=== PATIENT | male | born 1955 | race Caucasian/White ===

== ENCOUNTER → 2016-06-29 | Outpatient (CLI) | payer BC | LOC: BMCIMAGING 08:01 | PROVIDERS: ATTEND Allergy & Immunology Allergy | DX: R50.9 Fever, unspecified (principal); J98.11 Atelectasis ==

== ENCOUNTER → 2016-07-11 | Outpatient (CLI) | payer BC | LOC: CIMAGING 09:24 | PROVIDERS: ATTEND Internal Medicine | DX: J98.11 Atelectasis (principal) | CPT/HCPCS: 71250-PO ==